=== PATIENT | female | born 1945 | race American Indian/Alaskan Native ===

== ENCOUNTER 2018-11-18 18:17 | Emergency (ER) | payer MEDICARE ==
--- NOTE | 2018-11-18 19:22 | Emergency Department Report ---
Blank Doc - Documentation Documentation: This is a 73-year-old female that presents with dizziness. Nephew in law stated that patient is here for mental health. Stated that she was discharged from half-way and has no place to go, as per nephew in law. Patient denies any mental issues. Patient is A/O x3. Denies any SI/HI. This initial assessment/diagnostic orders/clinical plan/treatment(s) is/are subject to change based on patient's health status, clinical progression and re- assessment by fellow clinical providers in the ED. Further treatment and workup at subsequent clinical providers discretion. Patient/guardians urged not to elope from the ED as their condition may be serious if not clinically assessed and managed. Initial orders include: 1- Patient sent to MAIN ED for further evaluation and treatment 2- labs 3- UA
[2018-11-18 20:34] LABS: Hematocrit 36.8 % (30.3-42.9); Hemoglobin 11.9 gm/dl (10.1-14.3); Mean Corpuscular HGB Conc 32 % (30-34); Mean Corpuscular Volume 93 fl (79-97); Red Blood Count 3.96 M/mm3 (3.65-5.03); Red Cell Distribution Width 18.3 % (13.2-15.2)
[2018-11-18 20:35] LABS: Platelet Count 240 K/mm3 (140-440)
[2018-11-18 21:02] LABS: Albumin 4.1 g/dL (3.9-5); Calcium 9.3 mg/dL (8.4-10.2)
[2018-11-18 21:53] LABS: Band Neutrophils # (Manual) 0.1 K/mm3; Basophils % (Manual) 0 % (0.0-1.8); Eosinophils % (Manual) 0 % (0.0-4.3); RBC Morphology Normal; Total Cells Counted 100
[2018-11-18 22:09] LABS: Bilirubin,Urine NEG (Negative); Blood,Urine NEG (Negative); Color,Urine Yellow (Yellow); Mucus,Urine FEW /HPF; Urobilinogen,Urine < 2.0 mg/dL (<2.0)
--- NOTE | 2018-11-19 01:16 | Emergency Department Report ---
HPI - General Chief Complaint: Dizziness Time Seen by Provider: 11/18/18 19:14 - HPI HPI: Room 8 The patient is a 73-year-old female presenting with a chief complaint of homelessness. Patient was reportedly brought in by a nephew in law after being kicked out of a personal usp. The patient says she has a history of vertigo for a long time and it usually affects her when she stands. Patient denies suicidal or homicidal ideation. Patient denies auditory or visual hallucinations. Patient denies chest pain shortness of breath or headache. P atient currently denies any complaints Location: [See above] Duration: [See above] Quality: [See above] Severity: [See above] Modifying factors: [see above] Context: [see above] Mode of transportation: [not driving] ED Past Medical Hx - Past Medical History Hx Hypertension: Yes Additional medical history: Vertigo - Surgical History Additional Surgical History: Toe repair - Family History Family history: no significant - Social History Smoking Status: Former Smoker Substance Use Type: None - Medications Home Medications: Home Medications Medication Instructions Recorded Confirmed Last Taken Type Ergocalciferol [Vitamin D2] 1 cap PO QWEEK 11/19/18 11/19/18 Unknown History Fluticasone [Flonase] 1 spray NS QDAY 11/19/18 11/19/18 Unknown History Gabapentin [Neurontin] 100 mg PO Q8HR 11/19/18 11/19/18 Unknown History HYDROcodone/APAP 7.5-325 [[place] 1 each PO Q6HR PRN 11/19/18 11/19/18 Unknown History 7.5/325] Quetiapine Fumarate [Seroquel] 50 mg PO DAILY 11/19/18 11/19/18 Unknown History Zinc Oxide/Menthol/Calamine 1 drop OS DAILY 11/19/18 11/19/18 Unknown History [Lantiseptic Multi-Purpose Oint] traMADol [Ultram] 50 mg PO Q6HR PRN 11/19/18 11/19/18 Unknown History ED Review of Systems ROS: Stated complaint: PSYCH EVAL Other details as noted in HPI Constitutional: no symptoms reported Eyes: denies: eye pain ENT: denies: throat pain Respiratory: no symptoms reported Cardiovascular: denies: chest pain Endocrine: no symptoms reported Gastrointestinal: denies: abdominal pain Genitourinary: denies: dysuria Musculoskeletal: denies: back pain Neurological: denies: headache Physical Exam - Physical Exam Vital Signs: Vital Signs 11/18/18 11/18/18 11/18/18 19:11 19:14 22:21 Temperature 98.0 F 98.0 F Pulse Rate 73 74 69 Respiratory 18 18 20 Rate Blood Pressure 169/87 169/87 Blood Pressure 168/88 [Left] O2 Sat by Pulse 97 96 97 Oximetry 11/18/18 11/19/18 23:00 00:00 Temperature Pulse Rate Respiratory 18 18 Rate Blood Pressure Blood Pressure 160/66 [Left] O2 Sat by Pulse 97 100 Oximetry Physical Exam: GENERAL: The patient is well-developed well-nourished female lying on stretcher not appear to be in acute distress. [] HEENT: Normocephalic. Atraumatic. Extraocular motions are intact. Patient has moist mucous membranes. NECK: Supple. Trachea midline CHEST/LUNGS: Clear to auscultation. There is no respiratory distress noted. HEART/CARDIOVASCULAR: Regular. There is no tachycardia. There is no gallop rub or murmur. ABDOMEN: Abdomen is soft, nontender. Patient has normal bowel sounds. There is no abdominal distention. SKIN: There is no rash. There is no edema. There is no diaphoresis. NEURO: The patient is awake, alert, and oriented. The patient is cooperative. The patient has no focal neurologic deficits. The patient has normal speech MUSCULOSKELETAL: There is no evidence of acute injury. ED Course Vital Signs 11/18/18 11/18/18 11/18/18 19:11 19:14 22:21 Temperature 98.0 F 98.0 F Pulse Rate 73 74 69 Respiratory 18 18 20 Rate Blood Pressure 169/87 169/87 Blood Pressure 168/88 [Left] O2 Sat by Pulse 97 96 97 Oximetry 11/18/18 11/19/18 23:00 00:00 Temperature Pulse Rate Respiratory 18 18 Rate Blood Pressure Blood Pressure 160/66 [Left] O2 Sat by Pulse 97 100 Oximetry ED Medical Decision Making - Lab Data Result diagrams: 11/18/18 19:36 11/18/18 19:36 Laboratory Tests 11/18/18 11/18/18 11/18/18 19:36 19:36 21:40 WBC 9.9 RBC 3.96 Hgb 11.9 Hct 36.8 MCV 93 MCH 30 MCHC 32 RDW 18.3 H Plt Count 240 Add Manual Diff Complete Total Counted 100 Seg Neuts % (Manual) 59.0 Band Neutrophils % 1.0 Lymphocytes % (Manual) 32.0 Reactive Lymphs % (Man) 0 Monocytes % (Manual) 8.0 H Eosinophils % (Manual) 0 Basophils % (Manual) 0 Metamyelocytes % 0 Myelocytes % 0 Promyelocytes % 0 Blast Cells % 0 Nucleated RBC % Not Reportable Seg Neutrophils # Man 5.8 Band Neutrophils # 0.1 Lymphocytes # (Manual) 3.2 Abs React Lymphs (Man) 0.0 Monocytes # (Manual) 0.8 Eosinophils # (Manual) 0.0 Basophils # (Manual) 0.0 Metamyelocytes # 0.0 Myelocytes # 0.0 Promyelocytes # 0.0 Blast Cells # 0.0 WBC Morphology Not Reportable Hypersegmented Neuts Not Reportable Hyposegmented Neuts Not Reportable Hypogranular Neuts Not Reportable Smudge Cells Not Reportable Toxic Granulation Not Reportable Toxic Vacuolation Not Reportable Dohle Bodies Not Reportable Pelger-Huet Anomaly Not Reportable Corbin Rods Not Reportable Platelet Estimate Appears normal Clumped Platelets Not Reportable Plt Clumps, EDTA Not Reportable Large Platelets Not Reportable Giant Platelets Not Reportable Platelet Satelliting Not Reportable Plt Morphology Comment Not Reportable RBC Morphology Normal Dimorphic RBCs Not Reportable Polychromasia Not Reportable Hypochromasia Not Reportable Poikilocytosis Not Reportable Anisocytosis Not Reportable Microcytosis Not Reportable Macrocytosis Not Reportable Spherocytes Not Reportable Pappenheimer Bodies Not Reportable Sickle Cells Not Reportable Target Cells Not Reportable Tear Drop Cells Not Reportable Ovalocytes Not Reportable Helmet Cells Not Reportable [place] Bodies Not Reportable [place] Rings Not Reportable [place] Cells Not Reportable Bite Cells Not Reportable Crenated Cell Not Reportable Elliptocytes Not Reportable Acanthocytes (Spur) Not Reportable Rouleaux Not Reportable Hemoglobin C Crystals Not Reportable Schistocytes Not Reportable Malaria parasites Not Reportable Demetrius Bodies Not Reportable Hem Pathologist Commnt No Sodium 144 Potassium 4.0 Chloride 104.1 Carbon Dioxide 27 Anion Gap 17 BUN 15 Creatinine 1.1 Estimated GFR 48 BUN/Creatinine Ratio 14 Glucose 87 Calcium 9.3 Total Bilirubin 0.40 AST 16 ALT 10 Alkaline Phosphatase 81 Total Protein 7.4 Albumin 4.1 Albumin/Globulin Ratio 1.2 Urine Color Yellow Urine Turbidity Clear Urine pH 5.0 Ur Specific [place] 1.029 Urine Protein 30 mg/dl Urine Glucose (UA) Neg Urine Ketones Neg Urine Blood Neg Urine Nitrite Neg Urine Bilirubin Neg Urine Urobilinogen < 2.0 Ur Leukocyte Esterase Tr Urine WBC (Auto) 2.0 Urine RBC (Auto) 1.0 U Epithel Cells (Auto) 1.0 Urine Mucus Few - Differential Diagnosis homelessness, dementia Critical care attestation.: If time is entered above; I have spent that time in minutes in the direct care of this critically ill patient, excluding procedure time. ED Disposition Clinical Impression: Homelessness Disposition: DC-01 TO HOME OR SELFCARE Is pt being admited?: No Does the pt Need Aspirin: No Condition: Stable Referrals: TRA KELLER MD [Primary Care Provider] - 3-5 Days Time of Disposition: 01:16 (awaiting social work eval)
[2018-11-19 19:36] VITALS: BP 128/80
== END 2018-11-19 19:37 | disposition home or self-care (01) ==
LOC: ED 18:17
DX: R42 Dizziness and giddiness (principal); Z59.0 Homelessness; I10 Essential (primary) hypertension; Z87.891 Personal history of nicotine dependence
CPT/HCPCS: 36415; 80053; 81001; 85007; 85025

== ENCOUNTER 2022-03-12 03:08 | Inpatient (IN) | payer MEDICARE ==
--- NOTE | 2022-03-12 04:38 | XRay Report ---
CHEST 1 VIEW 03/12/2022 4:23 AM INDICATION / CLINICAL INFORMATION: sob. COMPARISON: None available. FINDINGS: SUPPORT DEVICES: None. HEART / MEDIASTINUM: Mild cardiomegaly. LUNGS / PLEURA: Increased interstitial markings were more localized opacity at the perihilar regions bilaterally. No pneumothorax. ADDITIONAL FINDINGS: No significant additional findings. IMPRESSION: Vascular congestion with suspected superimposed pneumonia. Signer Name: Michael Currie MD Signed: 03/12/2022 4:33 AM Workstation Name: [id number]
[2022-03-12] MEDS ORDERED: AZITHROMYCIN/NS 500 MG/250 ML 500 MG/250 ML BAG IV ONE (04:53)
[2022-03-12] MEDS ORDERED: cefTRIAXone/NS 2 GM/100 ML 2 GM/100 ML BAG IV ONE (04:53)
[2022-03-12 06:11] LABS: Basophils % (Auto) 0.4 % (0.0-1.8); Eosinophils # (Auto) 0.3 K/mm3 (0.0-0.4); Eosinophils % (Auto) 2.2 % (0.0-4.3); Hematocrit 33.8 % (30.3-42.9); Hemoglobin 10.7 gm/dl (10.1-14.3); Lymphocytes # (Auto) 0.9 K/mm3 (1.2-5.4); Lymphocytes % (Auto) 7.5 % (13.4-35.0); Mean Corpuscular HGB Conc 32 % (30-34); Mean Corpuscular Volume 103 fl (79-97); Monocytes # (Auto) 0.6 K/mm3 (0.0-0.8); Platelet Count 251 K/mm3 (140-440); Red Blood Count 3.29 M/mm3 (3.65-5.03); Red Cell Distribution Width 13.9 % (13.2-15.2)
[2022-03-12 06:23] LABS: INR 1.02 (0.87-1.13)
[2022-03-12 06:31] LABS: Albumin 3.8 g/dL (3.9-5); Calcium 9.1 mg/dL (8.4-10.2)
--- NOTE | 2022-03-12 06:43 | Emergency Department Report ---
HPI - General Chief Complaint: Dyspnea/Respdistress Time Seen by Provider: 03/12/22 04:00 - HPI HPI: Room 24 The patient is a 77-year-old female present with a chief complaint of shortness of breath. The patient is a resident at an assisted living facility reportedly awakened this morning at 02: 00 complaint of shortness of breath with a cough. Patient was found to be hypoxic to 88% on room air. EMS was called and applied a nonrebreather in addition to administering albuterol neb 2.5 mg. The patient has history of dementia and when asked what made her come to the emergency department patient replies "I am not sure." ED Past Medical Hx - Past Medical History Previous Medical History?: Yes Hx Hypertension: Yes Hx Arthritis: Yes Hx Dementia: Yes Additional medical history: Vertigo. Chronic pain - Surgical History Past Surgical History?: Yes Additional Surgical History: Toe repair - Family History Family history: no significant - Social History Smoking Status: Former Smoker Substance Use Type: None - Medications Home Medications: Home Medications Medication Instructions Recorded Confirmed Last Taken Type Ergocalciferol [Vitamin D2] 1 cap PO QWEEK 11/19/18 11/19/18 Unknown History Fluticasone [Flonase] 1 spray NS QDAY 11/19/18 11/19/18 Unknown History Gabapentin [Neurontin] 100 mg PO Q8HR 11/19/18 11/19/18 Unknown History HYDROcodone/APAP 7.5-325 [[place] 1 each PO Q6HR PRN 11/19/18 11/19/18 Unknown History 7.5/325] Quetiapine Fumarate [Seroquel] 50 mg PO DAILY 11/19/18 11/19/18 Unknown History Zinc Oxide/Menthol/Calamine 1 drop OS DAILY 11/19/18 11/19/18 Unknown History [Lantiseptic Multi-Purpose Oint] traMADoL [Ultram] 50 mg PO Q6HR PRN 11/19/18 11/19/18 Unknown History ED Review of Systems ROS: Stated complaint: YUNI Other details as noted in HPI Comment: Unobtainable due to pts medical conditions Physical Exam - Physical Exam Vital Signs: Vital Signs 03/12/22 03/12/22 03/12/22 03:08 04:15 04:16 Temperature 97.9 F Pulse Rate 88 68 Respiratory 18 21 Rate Blood Pressure 150/90 Blood Pressure [Left] O2 Sat by Pulse 98 95 95 Oximetry 03/12/22 05:20 Temperature Pulse Rate 72 Respiratory 19 Rate Blood Pressure Blood Pressure 109/91 [Left] O2 Sat by Pulse 95 Oximetry Physical Exam: GENERAL: The patient is well-developed well-nourished female lying on stretcher not appearing to be in acute distress. [] HEENT: Normocephalic. Atraumatic. Extraocular motions are intact. Patient has moist mucous membranes. NECK: Supple. Trachea midline CHEST/LUNGS: Clear to auscultation. There is no respiratory distress noted. HEART/CARDIOVASCULAR: Regular. There is no tachycardia. There is no gallop rub or murmur. ABDOMEN: Abdomen is soft, nontender. Patient has normal bowel sounds. There is no abdominal distention. SKIN: There is no rash. There is no edema. There is no diaphoresis. NEURO: The patient is awake and alert. The patient is cooperative. The patient has no focal neurologic deficits. The patient has normal speech. GCS 15 MUSCULOSKELETAL: There is no evidence of acute injury. ED Course Vital Signs 03/12/22 03/12/22 03/12/22 03:08 04:15 04:16 Temperature 97.9 F Pulse Rate 88 68 Respiratory 18 21 Rate Blood Pressure 150/90 Blood Pressure [Left] O2 Sat by Pulse 98 95 95 Oximetry 03/12/22 05:20 Temperature Pulse Rate 72 Respiratory 19 Rate Blood Pressure Blood Pressure 109/91 [Left] O2 Sat by Pulse 95 Oximetry ED Medical Decision Making - Lab Data Result diagrams: 03/12/22 05:31 03/12/22 05:31 Laboratory Tests 03/12/22 03/12/22 03/12/22 05:31 05:31 05:31 WBC 12.2 H RBC 3.29 L Hgb 10.7 Hct 33.8 MCV 103 H MCH 33 H MCHC 32 RDW 13.9 Plt Count 251 Lymph % (Auto) 7.5 L [place] % (Auto) 5.0 Eos % (Auto) 2.2 Baso % (Auto) 0.4 Lymph # (Auto) 0.9 L [place] # (Auto) 0.6 Eos # (Auto) 0.3 Baso # (Auto) 0.0 Seg Neutrophils % 84.9 H Seg Neutrophils # 10.4 H PT 14.5 INR 1.02 Sodium 148 H Potassium 4.1 Chloride 109.2 H Carbon Dioxide 27 Anion Gap 16 BUN 24 H Creatinine 1.1 Estimated GFR 58 BUN/Creatinine Ratio 22 Glucose 91 Calcium 9.1 Total Bilirubin 0.30 AST 27 ALT 26 Alkaline Phosphatase 68 Troponin T 0.015 NT-Pro-B Natriuret Pep 1824 H Total Protein 6.6 Albumin 3.8 L Albumin/Globulin Ratio 1.4 - EKG Data -: EKG Interpreted by Me EKG shows normal: sinus rhythm Rate: normal (72 bpm) - EKG Data When compared to previous EKG there are: previous EKG unavailable Interpretation: other (No ischemic changes seen) - Radiology Data Radiology results: report reviewed (Chest x-ray), image reviewed (Chest x-ray) interpreted by me: Chest [id number] patchy infiltrates. No pneumothorax [facility] [address] [place] [address] XRay Report Signed Patient: MIGUEL TRAVIS MR#: [id number] : 1945 Acct:[id number] Age/Sex: 77 / F ADM Date: 03/12/22 Loc: ED Attending Dr: Ordering Physician: JOHNATHON COLLINS MD Date of Service: 03/12/22 Procedure(s): XR chest 1V ap Accession Number(s): [id number] cc: JOHNATHON COLLINS MD Fluoro Time In Minutes: CHEST 1 VIEW 03/12/2022 4:23 AM INDICATION / CLINICAL INFORMATION: sob. COMPARISON: None available. FINDINGS: SUPPORT DEVICES: None. HEART / MEDIASTINUM: Mild cardiomegaly. LUNGS / PLEURA: Increased interstitial markings were more localized opacity at the perihilar regions bilaterally. No pneumothorax. ADDITIONAL FINDINGS: No significant additional findings. IMPRESSION: Vascular congestion with suspected superimposed pneumonia. Signer Name: Michael Currie MD Signed: 03/12/2022 4:33 AM Workstation Name: [id number] Transcribed By: ES Dictated By: Michael Currie MD Electronically Authenticated By: Michael Currie MD Signed Date/Time: 03/12/22432 DD/ 1 TD/TT: - Differential Diagnosis Pneumonia Critical care attestation.: If time is entered above; I have spent that time in minutes in the direct care of this critically ill patient, excluding procedure time. ED Disposition Clinical Impression: Pneumonia, Hypoxia Disposition: ADMITTED INPATIENT Is pt being admited?: Yes Does the pt Need Aspirin: No Condition: Fair Instructions: Bacterial Pneumonia (ED) Referrals: YESSICA ANN MD [Primary Care Provider] - 3-5 Days Time of Disposition: 07:07 (Care transferred to hospitalist Dr. Figueroa (discussed with Dr. Myers))
[2022-03-12] MEDS ORDERED: FUROSEMIDE 20 MG/2 ML INJ IV ONE ×2 (07:15→12:00)
[2022-03-12] MEDS ORDERED: oxyCODONE /ACETAMINOPHEN 5-325MG TAB PO PRN (08:14)
[2022-03-12] MEDS ORDERED: ACETAMINOPHEN 325 MG TAB PO PRN (08:14)
[2022-03-12] MEDS ORDERED: MORPHINE 4 MG/1 ML INJ IV PRN (08:14)
[2022-03-12] MEDS ORDERED: ONDANSETRON 4 MG/2 ML INJ IV PRN (08:14)
[2022-03-12] MEDS ORDERED: SODIUM CHLORIDE 0.9% 1000 ML 1,000 ML IV SCH (08:15)
[2022-03-12] MEDS: ENOXAPARIN 30 MG/0.3 ML INJ SUB-Q SCH (11:36)
--- NOTE | 2022-03-12 11:54 | History and Physical Report ---
History of Present Illness Date of examination: 03/12/22 Date of admission: 03/12/22 08:14 Chief complaint: shortness of breath History of present illness: Patient is a 77-year-old female history of dementia who presented from personal skilled nursing with shortness of breath. She was found to be hypoxic to 88% and placed on supplemental oxygen. At time of interview patient is alert and oriented to self. She is unable to provide further history due to mental status . Labs are notable for NT proBNP 1824. Chest x-ray suggestive of vascular congestion with superimposed pneumonia. Patient received 1 dose of azithromycin and Rocephin in ED. She was admitted for presumed CHF exacerbation with superimposed pneumonia. Past History Past Medical History: other (dementia) Medications and Allergies Allergies Allergy/AdvReac Type Severity Reaction Status Date / Time No Known Allergies Allergy Verified 03/12/22 08:18 Home Medications Medication Instructions Recorded Confirmed Last Taken Type Ergocalciferol [Vitamin D2] 1 cap PO QWEEK 11/19/18 03/13/22 Unknown History Fluticasone [Flonase] 1 spray NS QDAY 11/19/18 03/13/22 Unknown History HYDROcodone/APAP 7.5-325 [[place] 1 each PO Q6HR PRN 11/19/18 03/13/22 Unknown History 7.5-325 mg TAB] Zinc Oxide/Menthol/Calamine 1 drop OS DAILY 11/19/18 03/13/22 Unknown History [Lantiseptic Multi-Purpose Oint] traMADoL [Ultram 50 MG tab] 50 mg PO Q6HR PRN 11/19/18 03/13/22 Unknown History Gabapentin 100 mg PO Q8HR #90 cap 03/16/22 Unknown Rx Pantoprazole [Protonix TAB] 40 mg PO QDAC #20 tablet 03/16/22 Unknown Rx Sertraline [Zoloft] 25 mg PO QDAY #30 tablet 03/16/22 Unknown Rx Temazepam [Restoril] 15 mg PO QHS #10 capsule 03/16/22 Unknown Rx Valproic Acid [Depakene] 250 mg PO BID #60 capsule 03/16/22 Unknown Rx oxyCODONE /ACETAMINOPHEN [Percocet 1 tab PO Q6H PRN #14 tablet 03/16/22 Unknown Rx 5/325 mg] Active Meds: Active Medications Acetaminophen (Acetaminophen 325 Mg Tab) 650 mg PO Q4H PRN PRN Reason: Pain MILD(1-3)/Fever >100.5/GALLOWAY Enoxaparin Sodium (Enoxaparin 30 Mg/0.3 Ml Inj) 30 mg SUB-Q QDAY [facility]; Protocol Last Admin: 03/12/22 11:36 Dose: 30 mg Azithromycin (Zithromax/Ns) 500 mg in 250 mls @ 250 mls/hr IV Q24H RAMA Ceftriaxone Sodium (Rocephin/Ns 2 Gm/100 Ml) 2 gm in 100 mls @ 200 mls/hr IV Q24H [facility]; Protocol Morphine Sulfate (Morphine 4 Mg/1 Ml Inj) 4 mg IV Q4H PRN PRN Reason: Pain , Severe (7-10) Ondansetron HCl (Ondansetron 4 Mg/2 Ml Inj) 4 mg IV Q8H PRN PRN Reason: Nausea And Vomiting Oxycodone/Acetaminophen (Oxycodone /Acetaminophen 5-325mg Tab) 1 tab PO Q6H PRN PRN Reason: Pain, Moderate (4-6) Sodium Chloride (Sodium Chloride 0.9% 10 Ml Flush Syringe) 10 ml IV BID [facility] Last Admin: 03/12/22 11:36 Dose: 10 ml Sodium Chloride (Sodium Chloride 0.9% 10 Ml Flush Syringe) 10 ml IV PRN PRN PRN Reason: LINE FLUSH Review of Systems ROS unobtainable: due to mental status Exam - Physical Exam Narrative exam: GENERAL: Well-developed well-nourished. In no acute distress. HEENT: Simple facemask @ 5LPM NECK: Supple. CHEST/LUNGS: CTAB on supplemental O2. HEART/CARDIOVASCULAR: RRR. No murmur, rubs or gallops appreciated. ABDOMEN: +BS. NT/ND. SKIN: No rashes noted. NEURO: Patient does not follow commands. Has no focal deficits grossly. MUSCULOSKELETAL: No joint effusion EXTREMITIES: No cyanosis, clubbing or edema. PSYCH: Alert to person. - Constitutional Vitals: Temp Pulse Resp BP Pulse Ox 97.9 F 66 15 127/70 99 03/12/22 03:08 03/12/22 10:45 03/12/22 10:45 03/12/22 10:45 03/12/22 10:45 HEART Score - HEART Score Troponin: Troponin T 0.015 ng/mL (0.00-0.029) 03/12/22 05:31 Results - Labs CBC & Chem 7: 03/14/22 04:44 03/14/22 04:44 Labs: Laboratory Last Values WBC 12.2 K/mm3 (4.5-11.0) H 03/12/22 05:31 RBC 3.29 M/mm3 (3.65-5.03) L 03/12/22 05:31 Hgb 10.7 gm/dl (10.1-14.3) 03/12/22 05:31 Hct 33.8 % (30.3-42.9) 03/12/22 05:31 MCV 103 fl (79-97) H 03/12/22 05:31 MCH 33 pg (28-32) H 03/12/22 05:31 MCHC 32 % (30-34) 03/12/22 05:31 RDW 13.9 % (13.2-15.2) 03/12/22 05:31 Plt Count 251 K/mm3 (140-440) 03/12/22 05:31 Lymph % (Auto) 7.5 % (13.4-35.0) L 03/12/22 05:31 [place] % (Auto) 5.0 % (0.0-7.3) 03/12/22 05:31 Eos % (Auto) 2.2 % (0.0-4.3) 03/12/22 05:31 Baso % (Auto) 0.4 % (0.0-1.8) 03/12/22 05:31 Lymph # (Auto) 0.9 K/mm3 (1.2-5.4) L 03/12/22 05:31 [place] # (Auto) 0.6 K/mm3 (0.0-0.8) 03/12/22 05:31 Eos # (Auto) 0.3 K/mm3 (0.0-0.4) 03/12/22 05:31 Baso # (Auto) 0.0 K/mm3 (0.0-0.1) 03/12/22 05:31 Seg Neutrophils % 84.9 % (40.0-70.0) H 03/12/22 05:31 Seg Neutrophils # 10.4 K/mm3 (1.8-7.7) H 03/12/22 05:31 PT 14.5 Sec. (12.2-14.9) 03/12/22 05:31 INR 1.02 (0.87-1.13) 03/12/22 05:31 Sodium 148 mmol/L (137-145) H 03/12/22 05:31 Potassium 4.1 mmol/L (3.6-5.0) 03/12/22 05:31 Chloride 109.2 mmol/L (98-107) H 03/12/22 05:31 Carbon Dioxide 27 mmol/L (22-30) 03/12/22 05:31 Anion Gap 16 mmol/L 03/12/22 05:31 BUN 24 mg/dL (7-17) H 03/12/22 05:31 Creatinine 1.1 mg/dL (0.6-1.2) 03/12/22 05:31 Estimated GFR 58 ml/min 03/12/22 05:31 BUN/Creatinine Ratio 22 % 03/12/22 05:31 Glucose 91 mg/dL (65-100) 03/12/22 05:31 Calcium 9.1 mg/dL (8.4-10.2) 03/12/22 05:31 Total Bilirubin 0.30 mg/dL (0.1-1.2) 03/12/22 05:31 AST 27 units/L (5-40) 03/12/22 05:31 ALT 26 units/L (7-56) 03/12/22 05:31 Alkaline Phosphatase 68 units/L (35-129) 03/12/22 05:31 Troponin T 0.015 ng/mL (0.00-0.029) 03/12/22 05:31 NT-Pro-B Natriuret Pep 1824 pg/mL (0-900) H 03/12/22 05:31 Total Protein 6.6 g/dL (6.3-8.2) 03/12/22 05:31 Albumin 3.8 g/dL (3.9-5) L 03/12/22 05:31 Albumin/Globulin Ratio 1.4 % 03/12/22 05:31 Assessment and Plan Assessment and plan: #Acute hypoxic respiratory failure -no baseline O2 requirement -currently requiring 5L supplemental O2; will wean as tolerated -likely secondary to PNA vs CHF exacerbation #Bilateral pneumonia -CXR reviewed suggestive of vascular congestion with superimposed PNA -COVID PCR ordered -s/p azithromycin & rocephin in ED, will continue #Probable CHF exacerbation -NTproBNP 1824 -no prior hx of CHF; improvement in symptoms s/p 1 dose of IV lasix in ED -echocardiogram ordered -will consult Cardiology if EF reduced or patient symptoms worsen #History of seizure -Continue valproic acid 25 mg twice daily #Dementia -Continue sertraline, lorazepam and temazepam #Moderate protein calorie malnutrition -albumin 3.8 -nutrition consult Advance Directives: No VTE prophylaxis?: Chemical Plan of care discussed with patient/family: No
--- NOTE | 2022-03-12 19:56 | Electrocardiograph Report ---
[facility] Test Date: 2022-03-12 Test Time: 06:51:57 Pat Name: MIGUEL TRAVIS Department: Room: A351 Gender: F [place]: ALEXI : 1945 Requested By: JOHNATHON COLLINS Order Number: [id number] Reading MD: Oumar Gerber Measurements Intervals [place] Rate: 72 P: 67 NC: 147 QRS: -13 QRSD: 89 T: 68 QT: 397 QTc: 433 Interpretive Statements Sinus rhythm Anterior infarct, old No previous ECG available for comparison Electronically Signed On 03-12-2022 19:56:25 EDT by Oumar Gerber
[2022-03-12] MEDS: TEMAZEPAM 15 MG CAP PO SCH (22:41)
[2022-03-12] MEDS: GABAPENTIN 100 MG CAP PO SCH (22:41)
[2022-03-12] MEDS: LORazepam 1 MG TAB PO SCH (22:41)
[2022-03-12] MEDS ORDERED: DEXTROSE 50% IN WATER (25GM) 50 ML SYRINGE IV ONE (23:05)
[2022-03-12] MEDS: VALPROIC ACID 250 MG CAP PO SCH (23:10)
[2022-03-13 05:50] LABS: Basophils % (Auto) 0.4 % (0.0-1.8); Eosinophils # (Auto) 0.2 K/mm3 (0.0-0.4); Eosinophils % (Auto) 3.2 % (0.0-4.3); Hematocrit 32.1 % (30.3-42.9); Hemoglobin 10.6 gm/dl (10.1-14.3); Lymphocytes # (Auto) 1.2 K/mm3 (1.2-5.4); Lymphocytes % (Auto) 16.1 % (13.4-35.0); Mean Corpuscular HGB Conc 33 % (30-34); Mean Corpuscular Volume 100 fl (79-97); Monocytes # (Auto) 0.5 K/mm3 (0.0-0.8); Monocytes % (Auto) 6.3 % (0.0-7.3); Platelet Count 269 K/mm3 (140-440); Red Cell Distribution Width 14.2 % (13.2-15.2)
[2022-03-13 06:00] LABS: Blood Urea Nitrogen 20 mg/dL (7-17); Calcium 9.4 mg/dL (8.4-10.2); Hemolysis Index 3
[2022-03-13 06:04] LABS: BUN/Creatinine Ratio 29
--- NOTE | 2022-03-13 08:40 | Progress Note ---
History Interval history: Patient is a 77-year-old female history of dementia who presented from personal detention with shortness of breath. She was found to be hypoxic to 88% and placed on supplemental oxygen. At time of interview, patient was alert and oriented to self. She is unable to provide further history due to mental status. Labs are notable for NT proBNP 1824. Chest x-ray suggestive of vascular congestion with superimposed pneumonia. Patient received 1 dose of azithromycin and Rocephin in ED. She was admitted for presumed CHF exacerbation with superimposed pneumonia. Acute hypoxic respiratory failure Mild CHF exacerbation Bilateral pneumonia History of seizure disorder Dementia Moderate protein calorie malnutrition 03/13/2022. Continue supplemental oxygen to maintain sats greater than 92%. Follow-up echocardiogram to assess heart failure etiology of systolic versus diastolic dysfunction. Continue IV antibiotics and follow-up procalcitonin levels. Check COVID PCR. Continue Depakote for seizure disorder. Seizure precautions. Hospitalist Physical - Constitutional Vitals: Temp Pulse Resp BP Pulse Ox 96.0 F L 51 L 18 172/85 97 03/13/22 03:24 03/13/22 03:24 03/13/22 03:24 03/13/22 03:24 03/13/22 03:24 HEART Score - HEART Score Troponin: Troponin T 0.015 ng/mL (0.00-0.029) 03/12/22 05:31 Results - Labs CBC & Chem 7: 03/13/22 05:09 03/13/22 05:09 Labs: Laboratory Last Values WBC 7.5 K/mm3 (4.5-11.0) 03/13/22 05:09 RBC 3.20 M/mm3 (3.65-5.03) L 03/13/22 05:09 Hgb 10.6 gm/dl (10.1-14.3) 03/13/22 05:09 Hct 32.1 % (30.3-42.9) 03/13/22 05:09 MCV 100 fl (79-97) H 03/13/22 05:09 MCH 33 pg (28-32) H 03/13/22 05:09 MCHC 33 % (30-34) 03/13/22 05:09 RDW 14.2 % (13.2-15.2) 03/13/22 05:09 Plt Count 269 K/mm3 (140-440) 03/13/22 05:09 Lymph % (Auto) 16.1 % (13.4-35.0) 03/13/22 05:09 [place] % (Auto) 6.3 % (0.0-7.3) 03/13/22 05:09 Eos % (Auto) 3.2 % (0.0-4.3) 03/13/22 05:09 Baso % (Auto) 0.4 % (0.0-1.8) 03/13/22 05:09 Lymph # (Auto) 1.2 K/mm3 (1.2-5.4) 03/13/22 05:09 [place] # (Auto) 0.5 K/mm3 (0.0-0.8) 03/13/22 05:09 Eos # (Auto) 0.2 K/mm3 (0.0-0.4) 03/13/22 05:09 Baso # (Auto) 0.0 K/mm3 (0.0-0.1) 03/13/22 05:09 Seg Neutrophils % 74.0 % (40.0-70.0) H 03/13/22 05:09 Seg Neutrophils # 5.6 K/mm3 (1.8-7.7) 03/13/22 05:09 PT 14.5 Sec. (12.2-14.9) 03/12/22 05:31 INR 1.02 (0.87-1.13) 03/12/22 05:31 Sodium 147 mmol/L (137-145) H 03/13/22 05:09 Potassium 3.5 mmol/L (3.6-5.0) L 03/13/22 05:09 Chloride 107.2 mmol/L (98-107) H 03/13/22 05:09 Carbon Dioxide 29 mmol/L (22-30) 03/13/22 05:09 Anion Gap 14 mmol/L 03/13/22 05:09 BUN 20 mg/dL (7-17) H 03/13/22 05:09 Creatinine 0.7 mg/dL (0.6-1.2) 03/13/22 05:09 Estimated GFR > 60 ml/min 03/13/22 05:09 BUN/Creatinine Ratio 29 % 03/13/22 05:09 Glucose 74 mg/dL (65-100) 03/13/22 05:09 POC Glucose 87 mg/dL (70-105) 03/13/22 03:39 Calcium 9.4 mg/dL (8.4-10.2) 03/13/22 05:09 Total Bilirubin 0.30 mg/dL (0.1-1.2) 03/12/22 05:31 AST 27 units/L (5-40) 03/12/22 05:31 ALT 26 units/L (7-56) 03/12/22 05:31 Alkaline Phosphatase 68 units/L (35-129) 03/12/22 05:31 Troponin T 0.015 ng/mL (0.00-0.029) 03/12/22 05:31 NT-Pro-B Natriuret Pep 1824 pg/mL (0-900) H 03/12/22 05:31 Total Protein 6.6 g/dL (6.3-8.2) 03/12/22 05:31 Albumin 3.8 g/dL (3.9-5) L 03/12/22 05:31 Albumin/Globulin Ratio 1.4 % 03/12/22 05:31 Coronavirus (PCR) Negative (Negative) 03/12/22 14:20 Microbiology: Microbiology 03/12/22 05:57 Peripheral/Venous Blood Culture - Preliminary Culture in Progress 03/12/22 05:31 Peripheral/Venous Blood Culture - Preliminary Culture in Progress [place]/IV: Voiding Method External Female Catheter Active Medications - Current Medications Current Medications: Generic Name Dose Route Start Last Admin Trade Name Freq PRN Reason Stop Dose Admin Acetaminophen 650 mg 03/12/22 08:14 Acetaminophen 325 Mg Tab PO Q4H PRN Pain MILD(1-3)/Fever >100.5/GALLOWAY Azithromycin 500 mg 03/13/22 10:00 Azithromycin 250 Mg Tab PO 03/16/22 10:59 QDAY RAMA Enoxaparin Sodium 30 mg 03/12/22 10:00 03/12/22 11:36 Enoxaparin 30 Mg/0.3 Ml Inj SUB-Q 30 mg QDAY RAMA Administration Protocol Gabapentin 100 mg 03/12/22 14:00 03/12/22 22:41 Gabapentin 100 Mg Cap PO 100 mg Q8HR RAMA Administration Ceftriaxone Sodium 2 gm in 100 mls @ 200 mls/hr 03/13/22 09:00 Rocephin/Ns 2 Gm/100 Ml IV 03/16/22 10:59 Q24H RAMA Protocol Lorazepam 1 mg 03/12/22 22:00 03/12/22 22:41 Lorazepam 1 Mg Tab PO 1 mg QHS RAMA Administration Morphine Sulfate 4 mg 03/12/22 08:14 Morphine 4 Mg/1 Ml Inj IV Q4H PRN Pain , Severe (7-10) Ondansetron HCl 4 mg 03/12/22 08:14 Ondansetron 4 Mg/2 Ml Inj IV Q8H PRN Nausea And Vomiting Oxycodone/Acetaminophen 1 tab 03/12/22 08:14 Oxycodone /Acetaminophen 5-325mg Tab PO Q6H PRN Pain, Moderate (4-6) Pantoprazole Sodium 40 mg 03/13/22 07:30 Pantoprazole 40 Mg Tab PO QDAC RAMA Sertraline HCl 25 mg 03/12/22 12:00 Sertraline 25 Mg Tab PO QDAY RAMA Sodium Chloride 10 ml 03/12/22 10:00 03/12/22 22:41 Sodium Chloride 0.9% 10 Ml Flush Syringe IV 10 ml BID RAMA Administration Sodium Chloride 10 ml 03/12/22 08:14 Sodium Chloride 0.9% 10 Ml Flush Syringe IV PRN PRN LINE FLUSH Temazepam 15 mg 03/12/22 22:00 03/12/22 22:41 Temazepam 15 Mg Cap PO 15 mg QHS RAMA Administration Valproic Acid 250 mg 03/12/22 22:00 03/12/22 23:10 Valproic Acid 250 Mg Cap PO 250 mg BID RAMA Administration
[2022-03-13] MEDS ORDERED: AZITHROMYCIN/NS 500 MG/250 ML 500 MG/250 ML BAG IV SCH (09:00)
[2022-03-13] MEDS: AZITHROMYCIN 250 MG TAB PO SCH (09:13)
[2022-03-13] MEDS: cefTRIAXone/NS 2 GM/100 ML 2 GM/100 ML BAG IV SCH (09:13)
[2022-03-13] MEDS: ENOXAPARIN 30 MG/0.3 ML INJ SUB-Q SCH (09:13)
[2022-03-13] MEDS: PANTOPRAZOLE 40 MG TAB PO SCH (09:13)
[2022-03-13] MEDS: SERTRALINE 25 MG TAB PO SCH (09:13)
[2022-03-13] MEDS: VALPROIC ACID 250 MG CAP PO SCH ×2 (11:23→23:04)
[2022-03-13] MEDS: GABAPENTIN 100 MG CAP PO SCH ×3 (16:06→23:08)
[2022-03-13] MEDS: TEMAZEPAM 15 MG CAP PO SCH (23:04)
[2022-03-13] MEDS: LORazepam 1 MG TAB PO SCH (23:05)
[2022-03-14 05:04] LABS: Hematocrit 34.7 % (30.3-42.9); Hemoglobin 11.5 gm/dl (10.1-14.3); Mean Corpuscular HGB Conc 33 % (30-34); Mean Corpuscular Volume 100 fl (79-97); Platelet Count 279 K/mm3 (140-440); Red Blood Count 3.48 M/mm3 (3.65-5.03); Red Cell Distribution Width 14.1 % (13.2-15.2)
[2022-03-14 05:17] LABS: Blood Urea Nitrogen 24 mg/dL (7-17); Calcium 9.8 mg/dL (8.4-10.2); Hemolysis Index 1
[2022-03-14 05:29] LABS: BUN/Creatinine Ratio 34
[2022-03-14 07:10] LABS: Basophils % (Manual) 0 % (0.0-1.8); Monocytes % (Manual) 0 % (0.0-7.3); Platelet Estimate Consistent w Auto; RBC Morphology Normal; Total Cells Counted 100
--- NOTE | 2022-03-14 08:22 | Progress Note ---
Assessment and Plan Assessment and plan: 77-year-old female patient with significant past medical history of dementia was admitted through [facility] with shortness of breath. She was found to be hypoxic to 88% and placed on supplemental oxygen. At time of interview, patient was alert and oriented to self. She is unable to provide further history due to mental status. Labs are notable for NT proBNP 1824. Chest x-ray suggestive of vascular congestion with superimposed pneumonia. Patient received 1 dose of azithromycin and Rocephin in ED. She was admitted for presumed CHF exacerbation with superimposed pneumonia. --Acute hypoxic respiratory failure; Oxygen titrate O2 sats to more than 90% COVID-19 test is negative, home O2 evaluation prior to discharge --Mild diastolic CHF exacerbation; Antifailure medications Left ventricle ejection fraction 65% and mild concentric LVH on echocardiogram --Bilateral pneumonia; Continue empiric antibiotics, follow cultures Home O2 evaluation prior to discharge --History of seizure disorder; Seizure precautions, continue antiepileptic medications Do not drive until cleared by neurology or primary care physician --Dementia; Supportive care --Moderate protein calorie malnutrition; Nutrition supplements and supportive care 03/13/2022. Continue supplemental oxygen to maintain sats greater than 92%. Follow-up echocardiogram to assess heart failure etiology of systolic versus diastolic dysfunction. Continue IV antibiotics and follow-up procalcitonin levels. Check COVID PCR. Continue Depakote for seizure disorder. Seizure pre cautions. 03/14; COVID-19 is negative, DC isolation, continue to treat bilateral pneumonia with Rocephin and Zithromax Monitor the patient and adjust management as needed Possible discharge in 1 to 2 days if stable History Interval history: I have seen and examined the patient at the bedside Patient's chart and medications reviewed Patient's COVID test is negative Complains of mild shortness of breath and generalized weakness Vital signs reviewed Hospitalist Physical - Constitutional Vitals: Temp Pulse Resp BP Pulse Ox 98.1 F 56 L 18 200/108 89 03/13/22 22:57 03/14/22 08:19 03/13/22 23:00 03/14/22 08:13 03/14/22 08:13 General appearance: Present: no acute distress, well-nourished - EENT Eyes: Present: PERRL, EOM intact - Neck Neck: Present: supple, normal ROM - Respiratory Respiratory effort: normal Respiratory: bilateral: diminished, rhonchi, negative: rales, wheezing - Cardiovascular Rhythm: regular Heart Sounds: Present: S1 & S2 - Extremities Extremities: no ischemia, No edema - Abdominal General gastrointestinal: soft, non-tender, non-distended, normal bowel sounds - Integumentary Integumentary: Present: clear, warm - Psychiatric Psychiatric: appropriate mood/affect, cooperative - Neurologic Neurologic: moves all extremities HEART Score - HEART Score Troponin: Troponin T 0.015 ng/mL (0.00-0.029) 03/12/22 05:31 Results - Labs CBC & Chem 7: 03/14/22 04:44 03/14/22 04:44 Labs: Laboratory Last Values WBC 6.6 K/mm3 (4.5-11.0) 03/14/22 04:44 RBC 3.48 M/mm3 (3.65-5.03) L 03/14/22 04:44 Hgb 11.5 gm/dl (10.1-14.3) 03/14/22 04:44 Hct 34.7 % (30.3-42.9) 03/14/22 04:44 MCV 100 fl (79-97) H 03/14/22 04:44 MCH 33 pg (28-32) H 03/14/22 04:44 MCHC 33 % (30-34) 03/14/22 04:44 RDW 14.1 % (13.2-15.2) 03/14/22 04:44 Plt Count 279 K/mm3 (140-440) 03/14/22 04:44 Lymph % (Auto) 16.1 % (13.4-35.0) 03/13/22 05:09 [place] % (Auto) 6.3 % (0.0-7.3) 03/13/22 05:09 Eos % (Auto) 3.2 % (0.0-4.3) 03/13/22 05:09 Baso % (Auto) 0.4 % (0.0-1.8) 03/13/22 05:09 Lymph # (Auto) 1.2 K/mm3 (1.2-5.4) 03/13/22 05:09 [place] # (Auto) 0.5 K/mm3 (0.0-0.8) 03/13/22 05:09 Eos # (Auto) 0.2 K/mm3 (0.0-0.4) 03/13/22 05:09 Baso # (Auto) 0.0 K/mm3 (0.0-0.1) 03/13/22 05:09 Add Manual Diff Complete 03/14/22 04:44 Total Counted 100 03/14/22 04:44 Seg Neutrophils % 74.0 % (40.0-70.0) H 03/13/22 05:09 Seg Neuts % (Manual) 80.0 % (40.0-70.0) H 03/14/22 04:44 Band Neutrophils % 0 % 03/14/22 04:44 Lymphocytes % (Manual) 13.0 % (13.4-35.0) L 03/14/22 04:44 Reactive Lymphs % (Man) 0 % 03/14/22 04:44 Monocytes % (Manual) 0 % (0.0-7.3) 03/14/22 04:44 Eosinophils % (Manual) 7.0 % (0.0-4.3) H 03/14/22 04:44 Basophils % (Manual) 0 % (0.0-1.8) 03/14/22 04:44 Metamyelocytes % 0 % 03/14/22 04:44 Myelocytes % 0 % 03/14/22 04:44 Promyelocytes % 0 % 03/14/22 04:44 Blast Cells % 0 % 03/14/22 04:44 Nucleated RBC % Not Reportable 03/14/22 04:44 Seg Neutrophils # 5.6 K/mm3 (1.8-7.7) 03/13/22 05:09 Seg Neutrophils # Man 5.3 K/mm3 (1.8-7.7) 03/14/22 04:44 Band Neutrophils # 0.0 K/mm3 03/14/22 04:44 Lymphocytes # (Manual) 0.9 K/mm3 (1.2-5.4) L 03/14/22 04:44 Abs React Lymphs (Man) 0.0 K/mm3 03/14/22 04:44 Monocytes # (Manual) 0.0 K/mm3 (0.0-0.8) 03/14/22 04:44 Eosinophils # (Manual) 0.5 K/mm3 (0.0-0.4) H 03/14/22 04:44 Basophils # (Manual) 0.0 K/mm3 (0.0-0.1) 03/14/22 04:44 Metamyelocytes # 0.0 K/mm3 03/14/22 04:44 Myelocytes # 0.0 K/mm3 03/14/22 04:44 Promyelocytes # 0.0 K/mm3 03/14/22 04:44 Blast Cells # 0.0 K/mm3 03/14/22 04:44 WBC Morphology Not Reportable 03/14/22 04:44 Hypersegmented Neuts Not Reportable 03/14/22 04:44 Hyposegmented Neuts Not Reportable 03/14/22 04:44 Hypogranular Neuts Not Reportable 03/14/22 04:44 Smudge Cells Not Reportable 03/14/22 04:44 Toxic Granulation Not Reportable 03/14/22 04:44 Toxic Vacuolation Not Reportable 03/14/22 04:44 Dohle Bodies Not Reportable 03/14/22 04:44 Pelger-Huet Anomaly Not Reportable 03/14/22 04:44 Corbin Rods Not Reportable 03/14/22 04:44 Platelet Estimate Consistent w auto 03/14/22 04:44 Clumped Platelets Not Reportable 03/14/22 04:44 Plt Clumps, EDTA Not Reportable 03/14/22 04:44 Large Platelets Not Reportable 03/14/22 04:44 Giant Platelets Not Reportable 03/14/22 04:44 Platelet Satelliting Not Reportable 03/14/22 04:44 Plt Morphology Comment Not Reportable 03/14/22 04:44 RBC Morphology Normal 03/14/22 04:44 Dimorphic RBCs Not Reportable 03/14/22 04:44 Polychromasia Not Reportable 03/14/22 04:44 Hypochromasia Not Reportable 03/14/22 04:44 Poikilocytosis Not Reportable 03/14/22 04:44 Anisocytosis Not Reportable 03/14/22 04:44 Microcytosis Not Reportable 03/14/22 04:44 Macrocytosis Not Reportable 03/14/22 04:44 Spherocytes Not Reportable 03/14/22 04:44 Pappenheimer Bodies Not Reportable 03/14/22 04:44 Sickle Cells Not Reportable 03/14/22 04:44 Target Cells Not Reportable 03/14/22 04:44 Tear Drop Cells Not Reportable 03/14/22 04:44 Ovalocytes Not Reportable 03/14/22 04:44 Helmet Cells Not Reportable 03/14/22 04:44 [place] Bodies Not Reportable 03/14/22 04:44 [place] Rings Not Reportable 03/14/22 04:44 [place] Cells Not Reportable 03/14/22 04:44 Bite Cells Not Reportable 03/14/22 04:44 Crenated Cell Not Reportable 03/14/22 04:44 Elliptocytes Not Reportable 03/14/22 04:44 Acanthocytes (Spur) Not Reportable 03/14/22 04:44 Rouleaux Not Reportable 03/14/22 04:44 Hemoglobin C Crystals Not Reportable 03/14/22 04:44 Schistocytes Not Reportable 03/14/22 04:44 Malaria parasites Not Reportable 03/14/22 04:44 Demetrius Bodies Not Reportable 03/14/22 04:44 Hem Pathologist Commnt No 03/14/22 04:44 PT 14.5 Sec. (12.2-14.9) 03/12/22 05:31 INR 1.02 (0.87-1.13) 03/12/22 05:31 Sodium 144 mmol/L (137-145) 03/14/22 04:44 Potassium 4.2 mmol/L (3.6-5.0) 03/14/22 04:44 Chloride 104.8 mmol/L (98-107) 03/14/22 04:44 Carbon Dioxide 29 mmol/L (22-30) 03/14/22 04:44 Anion Gap 14 mmol/L 03/14/22 04:44 BUN 24 mg/dL (7-17) H 03/14/22 04:44 Creatinine 0.7 mg/dL (0.6-1.2) 03/14/22 04:44 Estimated GFR > 60 ml/min 03/14/22 04:44 BUN/Creatinine Ratio 34 % 03/14/22 04:44 Glucose 94 mg/dL (65-100) 03/14/22 04:44 POC Glucose 86 mg/dL (70-105) 03/14/22 07:50 Calcium 9.8 mg/dL (8.4-10.2) 03/14/22 04:44 Total Bilirubin 0.30 mg/dL (0.1-1.2) 03/12/22 05:31 AST 27 units/L (5-40) 03/12/22 05:31 ALT 26 units/L (7-56) 03/12/22 05:31 Alkaline Phosphatase 68 units/L (35-129) 03/12/22 05:31 Troponin T 0.015 ng/mL (0.00-0.029) 03/12/22 05:31 C-Reactive Protein 9.70 mg/dL (0.00-1.30) H 03/13/22 07:45 NT-Pro-B Natriuret Pep 1824 pg/mL (0-900) H 03/12/22 05:31 Total Protein 6.6 g/dL (6.3-8.2) 03/12/22 05:31 Albumin 3.8 g/dL (3.9-5) L 03/12/22 05:31 Albumin/Globulin Ratio 1.4 % 03/12/22 05:31 Procalcitonin 0.10 ng/mL (<0.15) 03/13/22 07:45 Coronavirus (PCR) Negative (Negative) 03/12/22 14:20 Microbiology: Microbiology 03/12/22 05:31 Peripheral/Venous Blood Culture - Preliminary 03/12/22 05:57 Peripheral/Venous Blood Culture - Preliminary NO GROWTH AFTER 24 HOURS [place]/IV: Voiding Method External Female Catheter Active Medications - Current Medications Current Medications: Generic Name Dose Route Start Last Admin Trade Name Freq PRN Reason Stop Dose Admin Acetaminophen 650 mg 03/12/22 08:14 Acetaminophen 325 Mg Tab PO Q4H PRN Pain MILD(1-3)/Fever >100.5/GALLOWAY Azithromycin 500 mg 03/13/22 10:00 03/13/22 09:13 Azithromycin 250 Mg Tab PO 03/16/22 10:59 500 mg QDAY RAMA Administration Enoxaparin Sodium 30 mg 03/12/22 10:00 03/13/22 09:13 Enoxaparin 30 Mg/0.3 Ml Inj SUB-Q 30 mg QDAY RAMA Administration Protocol Gabapentin 100 mg 03/12/22 14:00 03/13/22 23:08 Gabapentin 100 Mg Cap PO 100 mg Q8HR RAMA Administration Hydralazine HCl 20 mg 03/14/22 08:30 Hydralazine 20 Mg/1 Ml Inj IV 03/14/22 08:31 ONCE ONE Ceftriaxone Sodium 2 gm in 100 mls @ 200 mls/hr 03/13/22 09:00 03/13/22 09:13 Rocephin/Ns 2 Gm/100 Ml IV 03/16/22 10:59 200 mls/hr Q24H RAMA Administration Protocol Lorazepam 1 mg 03/12/22 22:00 03/13/22 23:05 Lorazepam 1 Mg Tab PO 1 mg QHS RAMA Administration Morphine Sulfate 4 mg 03/12/22 08:14 Morphine 4 Mg/1 Ml Inj IV Q4H PRN Pain , Severe (7-10) Ondansetron HCl 4 mg 03/12/22 08:14 Ondansetron 4 Mg/2 Ml Inj IV Q8H PRN Nausea And Vomiting Oxycodone/Acetaminophen 1 tab 03/12/22 08:14 Oxycodone /Acetaminophen 5-325mg Tab PO Q6H PRN Pain, Moderate (4-6) Pantoprazole Sodium 40 mg 03/13/22 07:30 03/13/22 09:13 Pantoprazole 40 Mg Tab PO 40 mg QDAC RAMA Administration Sertraline HCl 25 mg 03/12/22 12:00 03/13/22 09:13 Sertraline 25 Mg Tab PO 25 mg QDAY RAMA Administration Sodium Chloride 10 ml 03/12/22 10:00 03/13/22 23:07 Sodium Chloride 0.9% 10 Ml Flush Syringe IV 10 ml BID RAMA Administration Sodium Chloride 10 ml 03/12/22 08:14 Sodium Chloride 0.9% 10 Ml Flush Syringe IV PRN PRN LINE FLUSH Temazepam 15 mg 03/12/22 22:00 03/13/22 23:04 Temazepam 15 Mg Cap PO 15 mg QHS RAMA Administration Valproic Acid 250 mg 03/12/22 22:00 03/13/22 23:04 Valproic Acid 250 Mg Cap PO 250 mg BID RAMA Administration Nutrition/Malnutrition Assess - Dietary Evaluation Nutrition/Malnutrition Findings: Nutrition Notes Start: 03/13/22 11:47 Freq: Status: Active Protocol: Document 03/13/22 11:47 ZAYRA (Rec: 03/13/22 11:52 NHALL [id number]) Nutrition Notes Need for Assessment generated from: pelt dropper,MST Initial or Follow up Brief Note Other Pertinent Diagnosis CHF exacerbation, acute resp failure, dementia, r/o COVID- 19 Current Diet Regular + ONS (per MD order) Labs/Tests Na 147 BUN 20 K 3.5 CRP 9.7 Pertinent Medications Reviewed Height 5 ft 3 in Weight 48.8 kg [place] Body Weight (kg) 52.27 BMI 19.1 Weight Status Underweight Subjective/Other Information Pt screened for malnutrition risk. Pt from a personal senior care. She consumed 50% of breakfast this am. Pt is alert and oriented x 2. Burn Absent Trauma Absent Skin Integrity/Comment César score: 13 Minimum of two criteria No Reduced [employer] Strength Measurably Reduced (severe) Is patient on ventilator? No Is Patient Ambulatory and/or Out of Bed No REE-([facility]-confined to bed) 1125.552 Kcal/Kg value to use for calculation 30 Approximate Energy Requirements Using 1464 kcal/Kg Calculation Used for Recommendations Kcal/kg Additional Notes Pro needs 1.2-1.5g/k-73g/ day Fluid needs 1ml/kcal Nutrition Intervention Add Supplement/Snack (indicate name/kcal Ensure Enlive BID /protein ) Provides kCal: 700 Provides Protein (gm) 40 Follow-Up By: 03/16/22 Additional Comments F/U: intakes (meals/ONS)
[2022-03-14] MEDS ORDERED: hydrALAZINE 20 MG/1 ML INJ IV ONE (08:30)
[2022-03-14] MEDS: AZITHROMYCIN 250 MG TAB PO SCH (10:26)
[2022-03-14] MEDS: SERTRALINE 25 MG TAB PO SCH (10:27)
[2022-03-14] MEDS: cefTRIAXone/NS 2 GM/100 ML 2 GM/100 ML BAG IV SCH (10:27)
[2022-03-14] MEDS: GABAPENTIN 100 MG CAP PO SCH ×4 (10:27→21:30)
[2022-03-14] MEDS: VALPROIC ACID 250 MG CAP PO SCH ×2 (10:27→21:29)
[2022-03-14] MEDS: ENOXAPARIN 30 MG/0.3 ML INJ SUB-Q SCH (10:27)
[2022-03-14] MEDS: PANTOPRAZOLE 40 MG TAB PO SCH (10:29)
[2022-03-14] MEDS: LORazepam 1 MG TAB PO SCH (21:30)
[2022-03-14] MEDS: TEMAZEPAM 15 MG CAP PO SCH (21:30)
--- NOTE | 2022-03-15 05:28 | Progress Note ---
Assessment and Plan Assessment and plan: 77-year-old female patient with significant past medical history of dementia was admitted through emergency room from personal custodial with shortness of breath. She was found to be hypoxic to 88% and placed on supplemental oxygen. At time of interview, patient was alert and oriented to self. She is unable to provide further history due to mental status. Labs are notable for NT proBNP 1824. Chest x-ray suggestive of vascular congestion with superimposed pneumonia. Patient received 1 dose of azithromycin and Rocephin in ED. She was admitted for presumed CHF exacerbation with superimposed pneumonia. --Acute hypoxic respiratory failure; Oxygen titrate O2 sats to more than 90% COVID-19 test is negative, home O2 evaluation prior to discharge --Mild diastolic CHF exacerbation; Antifailure medications Left ventricle ejection fraction 65% and mild concentric LVH on echocardiogram --Bilateral pneumonia; Continue empiric antibiotics, follow cultures Home O2 evaluation prior to discharge --History of seizure disorder; Seizure precautions, continue antiepileptic medications Do not drive until cleared by neurology or primary care physician --Dementia; Supportive care --Moderate protein calorie malnutrition; Nutrition supplements and supportive care 03/13/2022. Continue supplemental oxygen to maintain sats greater than 92%. Follow-up echocardiogram to assess heart failure etiology of systolic versus diastolic dysfunction. Continue IV antibiotics and follow-up procalcitonin levels. Check COVID PCR. Continue Depakote for seizure disorder. Seizure pre cautions. 03/14; COVID-19 is negative, DC isolation, continue to treat bilateral pneumonia with Rocephin and Zithromax Monitor the patient and adjust management as needed 03/15/2022; patient is receiving IV Rocephin and Zithromax for bilateral pneumonia COVID-19 is negative, last dose tomorrow Possible discharge if stable, patient will return to personal custodial Possible discharge in 1 to 2 days if stable History Interval history: I have seen and examined the patient at the bedside Patient's chart and medications reviewed Patient feels slightly better Patient is on IV antibiotics for bilateral pneumonia COVID-19 negative No new events reported by the nursing Vital signs noted Hospitalist Physical - Constitutional Vitals: Temp Pulse Resp BP Pulse Ox 98.7 F 61 20 111/65 99 03/14/22 20:56 03/14/22 22:00 03/14/22 22:00 03/14/22 20:56 03/14/22 22:00 General appearance: Present: no acute distress, cachectic - EENT Eyes: Present: PERRL, EOM intact - Neck Neck: Present: supple, normal ROM - Respiratory Respiratory effort: normal Respiratory: bilateral: diminished, negative: rales, rhonchi, wheezing - Cardiovascular Rhythm: regular Heart Sounds: Present: S1 & S2 - Extremities Extremities: no ischemia, No edema - Abdominal General gastrointestinal: soft, non-tender, non-distended, normal bowel sounds - Integumentary Integumentary: Present: clear, warm - Psychiatric Psychiatric: appropriate mood/affect, cooperative - Neurologic Neurologic: moves all extremities HEART Score - HEART Score Troponin: Troponin T 0.015 ng/mL (0.00-0.029) 03/12/22 05:31 Results - Labs CBC & Chem 7: 03/14/22 04:44 03/14/22 04:44 Labs: Laboratory Last Values WBC 6.6 K/mm3 (4.5-11.0) 03/14/22 04:44 RBC 3.48 M/mm3 (3.65-5.03) L 03/14/22 04:44 Hgb 11.5 gm/dl (10.1-14.3) 03/14/22 04:44 Hct 34.7 % (30.3-42.9) 03/14/22 04:44 MCV 100 fl (79-97) H 03/14/22 04:44 MCH 33 pg (28-32) H 03/14/22 04:44 MCHC 33 % (30-34) 03/14/22 04:44 RDW 14.1 % (13.2-15.2) 03/14/22 04:44 Plt Count 279 K/mm3 (140-440) 03/14/22 04:44 Lymph % (Auto) 16.1 % (13.4-35.0) 03/13/22 05:09 [place] % (Auto) 6.3 % (0.0-7.3) 03/13/22 05:09 Eos % (Auto) 3.2 % (0.0-4.3) 03/13/22 05:09 Baso % (Auto) 0.4 % (0.0-1.8) 03/13/22 05:09 Lymph # (Auto) 1.2 K/mm3 (1.2-5.4) 03/13/22 05:09 [place] # (Auto) 0.5 K/mm3 (0.0-0.8) 03/13/22 05:09 Eos # (Auto) 0.2 K/mm3 (0.0-0.4) 03/13/22 05:09 Baso # (Auto) 0.0 K/mm3 (0.0-0.1) 03/13/22 05:09 Add Manual Diff Complete 03/14/22 04:44 Total Counted 100 03/14/22 04:44 Seg Neutrophils % 74.0 % (40.0-70.0) H 03/13/22 05:09 Seg Neuts % (Manual) 80.0 % (40.0-70.0) H 03/14/22 04:44 Band Neutrophils % 0 % 03/14/22 04:44 Lymphocytes % (Manual) 13.0 % (13.4-35.0) L 03/14/22 04:44 Reactive Lymphs % (Man) 0 % 03/14/22 04:44 Monocytes % (Manual) 0 % (0.0-7.3) 03/14/22 04:44 Eosinophils % (Manual) 7.0 % (0.0-4.3) H 03/14/22 04:44 Basophils % (Manual) 0 % (0.0-1.8) 03/14/22 04:44 Metamyelocytes % 0 % 03/14/22 04:44 Myelocytes % 0 % 03/14/22 04:44 Promyelocytes % 0 % 03/14/22 04:44 Blast Cells % 0 % 03/14/22 04:44 Nucleated RBC % Not Reportable 03/14/22 04:44 Seg Neutrophils # 5.6 K/mm3 (1.8-7.7) 03/13/22 05:09 Seg Neutrophils # Man 5.3 K/mm3 (1.8-7.7) 03/14/22 04:44 Band Neutrophils # 0.0 K/mm3 03/14/22 04:44 Lymphocytes # (Manual) 0.9 K/mm3 (1.2-5.4) L 03/14/22 04:44 Abs React Lymphs (Man) 0.0 K/mm3 03/14/22 04:44 Monocytes # (Manual) 0.0 K/mm3 (0.0-0.8) 03/14/22 04:44 Eosinophils # (Manual) 0.5 K/mm3 (0.0-0.4) H 03/14/22 04:44 Basophils # (Manual) 0.0 K/mm3 (0.0-0.1) 03/14/22 04:44 Metamyelocytes # 0.0 K/mm3 03/14/22 04:44 Myelocytes # 0.0 K/mm3 03/14/22 04:44 Promyelocytes # 0.0 K/mm3 03/14/22 04:44 Blast Cells # 0.0 K/mm3 03/14/22 04:44 WBC Morphology Not Reportable 03/14/22 04:44 Hypersegmented Neuts Not Reportable 03/14/22 04:44 Hyposegmented Neuts Not Reportable 03/14/22 04:44 Hypogranular Neuts Not Reportable 03/14/22 04:44 Smudge Cells Not Reportable 03/14/22 04:44 Toxic Granulation Not Reportable 03/14/22 04:44 Toxic Vacuolation Not Reportable 03/14/22 04:44 Dohle Bodies Not Reportable 03/14/22 04:44 Pelger-Huet Anomaly Not Reportable 03/14/22 04:44 [place]bin Rods Not Reportable 03/14/22 04:44 Platelet Estimate Consistent w auto 03/14/22 04:44 Clumped Platelets Not Reportable 03/14/22 04:44 Plt Clumps, EDTA Not Reportable 03/14/22 04:44 Large Platelets Not Reportable 03/14/22 04:44 Giant Platelets Not Reportable 03/14/22 04:44 Platelet Satelliting Not Reportable 03/14/22 04:44 Plt Morphology Comment Not Reportable 03/14/22 04:44 RBC Morphology Normal 03/14/22 04:44 Dimorphic RBCs Not Reportable 03/14/22 04:44 Polychromasia Not Reportable 03/14/22 04:44 Hypochromasia Not Reportable 03/14/22 04:44 Poikilocytosis Not Reportable 03/14/22 04:44 Anisocytosis Not Reportable 03/14/22 04:44 Microcytosis Not Reportable 03/14/22 04:44 Macrocytosis Not Reportable 03/14/22 04:44 Spherocytes Not Reportable 03/14/22 04:44 Pappenheimer Bodies Not Reportable 03/14/22 04:44 Sickle Cells Not Reportable 03/14/22 04:44 Target Cells Not Reportable 03/14/22 04:44 Tear Drop Cells Not Reportable 03/14/22 04:44 Ovalocytes Not Reportable 03/14/22 04:44 Helmet Cells Not Reportable 03/14/22 04:44 [place] [place] Bodies Not Reportable 03/14/22 04:44 [place] Rings Not Reportable 03/14/22 04:44 [place] Cells Not Reportable 03/14/22 04:44 Bite Cells Not Reportable 03/14/22 04:44 Crenated Cell Not Reportable 03/14/22 04:44 Elliptocytes Not Reportable 03/14/22 04:44 Acanthocytes (Spur) Not Reportable 03/14/22 04:44 Rouleaux Not Reportable 03/14/22 04:44 Hemoglobin C Crystals Not Reportable 03/14/22 04:44 Schistocytes Not Reportable 03/14/22 04:44 Malaria parasites Not Reportable 03/14/22 04:44 Demetrius Bodies Not Reportable 03/14/22 04:44 Hem Pathologist Commnt No 03/14/22 04:44 PT 14.5 Sec. (12.2-14.9) 03/12/22 05:31 INR 1.02 (0.87-1.13) 03/12/22 05:31 Sodium 144 mmol/L (137-145) 03/14/22 04:44 Potassium 4.2 mmol/L (3.6-5.0) 03/14/22 04:44 Chloride 104.8 mmol/L (98-107) 03/14/22 04:44 Carbon Dioxide 29 mmol/L (22-30) 03/14/22 04:44 Anion Gap 14 mmol/L 03/14/22 04:44 BUN 24 mg/dL (7-17) H 03/14/22 04:44 Creatinine 0.7 mg/dL (0.6-1.2) 03/14/22 04:44 Estimated GFR > 60 ml/min 03/14/22 04:44 BUN/Creatinine Ratio 34 % 03/14/22 04:44 Glucose 94 mg/dL (65-100) 03/14/22 04:44 POC Glucose 122 mg/dL (70-105) H 03/14/22 20:57 Calcium 9.8 mg/dL (8.4-10.2) 03/14/22 04:44 Total Bilirubin 0.30 mg/dL (0.1-1.2) 03/12/22 05:31 AST 27 units/L (5-40) 03/12/22 05:31 ALT 26 units/L (7-56) 03/12/22 05:31 Alkaline Phosphatase 68 units/L (35-129) 03/12/22 05:31 Troponin T 0.015 ng/mL (0.00-0.029) 03/12/22 05:31 C-Reactive Protein 9.70 mg/dL (0.00-1.30) H 03/13/22 07:45 NT-Pro-B Natriuret Pep 1824 pg/mL (0-900) H 03/12/22 05:31 Total Protein 6.6 g/dL (6.3-8.2) 03/12/22 05:31 Albumin 3.8 g/dL (3.9-5) L 03/12/22 05:31 Albumin/Globulin Ratio 1.4 % 03/12/22 05:31 Procalcitonin 0.10 ng/mL (<0.15) 03/13/22 07:45 Coronavirus (PCR) Negative (Negative) 03/12/22 14:20 Microbiology: Microbiology 03/12/22 05:57 Peripheral/Venous Blood Culture - Preliminary NO GROWTH AFTER 48 HOURS 03/12/22 05:31 Peripheral/Venous Blood Culture - Preliminary Coag Negative Staphylococcus [place]/IV: Voiding Method External Female Catheter Active Medications - Current Medications Current Medications: Generic Name Dose Route Start Last Admin Trade Name Freq PRN Reason Stop Dose Admin Acetaminophen 650 mg 03/12/22 08:14 03/14/22 13:49 Acetaminophen 325 Mg Tab PO 650 mg Q4H PRN Administration Pain MILD(1-3)/Fever >100.5/GALLOWAY Azithromycin 500 mg 03/13/22 10:00 03/14/22 10:26 Azithromycin 250 Mg Tab PO 03/16/22 10:59 500 mg QDAY RAMA Administration Enoxaparin Sodium 30 mg 03/12/22 10:00 03/14/22 10:27 Enoxaparin 30 Mg/0.3 Ml Inj SUB-Q 30 mg QDAY RAMA Administration Protocol Gabapentin 100 mg 03/12/22 14:00 03/14/22 21:30 Gabapentin 100 Mg Cap PO 100 mg Q8HR RAMA Administration Ceftriaxone Sodium 2 gm in 100 mls @ 200 mls/hr 03/13/22 09:00 03/14/22 10:27 Rocephin/Ns 2 Gm/100 Ml IV 03/16/22 10:59 200 mls/hr Q24H RAMA Administration Protocol Lorazepam 1 mg 03/12/22 22:00 03/14/22 21:30 Lorazepam 1 Mg Tab PO 1 mg QHS RAMA Administration Morphine Sulfate 4 mg 03/12/22 08:14 Morphine 4 Mg/1 Ml Inj IV Q4H PRN Pain , Severe (7-10) Ondansetron HCl 4 mg 03/12/22 08:14 Ondansetron 4 Mg/2 Ml Inj IV Q8H PRN Nausea And Vomiting Oxycodone/Acetaminophen 1 tab 03/12/22 08:14 Oxycodone /Acetaminophen 5-325mg Tab PO Q6H PRN Pain, Moderate (4-6) Pantoprazole Sodium 40 mg 03/13/22 07:30 03/14/22 10:29 Pantoprazole 40 Mg Tab PO 40 mg QDAC RAMA Administration Sertraline HCl 25 mg 03/12/22 12:00 03/14/22 10:27 Sertraline 25 Mg Tab PO 25 mg QDAY RAMA Administration Sodium Chloride 10 ml 03/12/22 10:00 03/14/22 21:30 Sodium Chloride 0.9% 10 Ml Flush Syringe IV 10 ml BID RAMA Administration Sodium Chloride 10 ml 03/12/22 08:14 Sodium Chloride 0.9% 10 Ml Flush Syringe IV PRN PRN LINE FLUSH Temazepam 15 mg 03/12/22 22:00 03/14/22 21:30 Temazepam 15 Mg Cap PO 15 mg QHS RAMA Administration Valproic Acid 250 mg 03/12/22 22:00 03/14/22 21:29 Valproic Acid 250 Mg Cap PO 250 mg BID RAMA Administration Nutrition/Malnutrition Assess - Dietary Evaluation Nutrition/Malnutrition Findings: Nutrition Notes Start: 03/13/22 1 1:47 Freq: Status: Active Protocol: Document 03/13/22 11:47 ZAYRA (Rec: 03/13/22 11:52 ZAYRA [id number]) Nutrition Notes Need for Assessment generated from: senior sql developer,MST Initial or Follow up Brief Note Other Pertinent Diagnosis CHF exacerbation, acute resp failure, dementia, r/o COVID- 19 Current Diet Regular + ONS (per MD order) Labs/Tests Na 147 BUN 20 K 3.5 CRP 9.7 Pertinent Medications Reviewed Height 5 ft 3 in Weight 48.8 kg [place] Body Weight (kg) 52.27 BMI 19.1 Weight Status Underweight Subjective/Other Information Pt screened for malnutrition risk. Pt from a personal custodial. She consumed 50% of breakfast this am. Pt is alert and oriented x 2. Burn Absent Trauma Absent Skin Integrity/Comment César score: 13 Minimum of two criteria No Reduced Wood Heel Flap Rubber Strength Measurably Reduced (severe) Is patient on ventilator? No Is Patient Ambulatory and/or Out of Bed No REE-([facility]-confined to bed) 1125.552 Kcal/Kg value to use for calculation 30 Approximate Energy Requirements Using 1464 kcal/Kg Calculation Used for Recommendations Kcal/kg Additional Notes Pro needs 1.2-1.5g/k-73g/ day Fluid needs 1ml/kcal Nutrition Intervention Add Supplement/Snack (indicate name/kcal Ensure Enlive BID /protein ) Provides kCal: 700 Provides Protein (gm) 40 Follow-Up By: 03/16/22 Additional Comments F/U: intakes (meals/ONS)
[2022-03-15] MEDS: GABAPENTIN 100 MG CAP PO SCH ×3 (08:50→22:12)
[2022-03-15] MEDS: AZITHROMYCIN 250 MG TAB PO SCH (09:14)
[2022-03-15] MEDS: PANTOPRAZOLE 40 MG TAB PO SCH (09:14)
[2022-03-15] MEDS: SERTRALINE 25 MG TAB PO SCH ×2 (09:14→09:20)
[2022-03-15] MEDS: VALPROIC ACID 250 MG CAP PO SCH ×2 (09:14→22:38)
[2022-03-15] MEDS: cefTRIAXone/NS 2 GM/100 ML 2 GM/100 ML BAG IV SCH (09:14)
[2022-03-15] MEDS: ENOXAPARIN 30 MG/0.3 ML INJ SUB-Q SCH (09:15)
[2022-03-15] MEDS: LORazepam 1 MG TAB PO SCH (22:12)
[2022-03-15] MEDS: TEMAZEPAM 15 MG CAP PO SCH (22:39)
[2022-03-16] MEDS: GABAPENTIN 100 MG CAP PO SCH ×3 (05:12→22:56)
--- NOTE | 2022-03-16 09:47 | Discharge Summary ---
Providers - Providers Date of Admission: 03/12/22 08:14 Date of discharge: 03/16/22 Attending physician: OLGA LIDIA CASAREZ 03/13/22 15:59 Speech Therapy Evaluation and Treat [CONS] Routine Reason For Exam: swallow evaluation 03/15/22 05:32 Physical Therapy Evaluation and Treat [CONS] Routine Comment: Reason For Exam: gen debility/DC needs Primary care physician: YESSICA ANN Hospitalization Condition: Fair Hospital course: 77-year-old female patient with significant past medical history of dementia was admitted through emergency room from personal skilled nursing with shortness of breath. She was found to be hypoxic to 88% and placed on supplemental oxygen. At time of interview, patient was alert and oriented to self. She is unable to provide further history due to mental status. Labs are notable for NT proBNP 1824. Chest x-ray suggestive of vascular congestion with superimposed pneumonia. Patient received 1 dose of azithromycin and Rocephin in ED. She was admitted for presumed CHF exacerbation with superimposed pneumonia. --Acute hypoxic respiratory failure; Oxygen titrate O2 sats to more than 90% COVID-19 test is negative, home O2 evaluation prior to discharge --Mild diastolic CHF exacerbation; Antifailure medications Pulmonary congestion on chest x-ray Elevated BNP 1824 Left ventricle ejection fraction 65% and mild concentric LVH on echocardiogram --Bilateral pneumonia; Continue empiric antibiotics, follow cultures Home O2 evaluation prior to discharge --History of seizure disorder; Seizure precautions, continue antiepileptic medications Do not drive until cleared by neurology or primary care physician --Dementia; Supportive care --Moderate protein calorie malnutrition; Nutrition supplements and supportive care 03/13/2022. Continue supplemental oxygen to maintain sats greater than 92%. Follow-up echocardiogram to assess heart failure etiology of systolic versus diastolic dysfunction. Continue IV antibiotics and follow-up procalcitonin leve ls. Check COVID PCR. Continue Depakote for seizure disorder. Seizure precautions. 03/14; COVID-19 is negative, DC isolation, continue to treat bilateral pneumonia with Rocephin and Zithromax Monitor the patient and adjust management as needed 03/15/2022; patient is receiving IV Rocephin and Zithromax for bilateral pneumonia COVID-19 is negative, last dose tomorrow Possible discharge if stable, patient will return to personal skilled nursing Possible discharge in 1 to 2 days if stable Disposition: 01 HOME / SELF CARE / HOMELESS Final Discharge Diagnosis (Prints w/discharge instructions): Acute hypoxic respiratory failure /resolved. Mild diastolic CHF. Bilateral pneumonia completed treatment. History of seizure disorder. Dementia. Moderate protein calorie malnutrition Time spent for discharge: 35 min Core Measure Documentation - Palliative Care Palliative Care/ Comfort Measures: Not Applicable - Core Measures Any of the following diagnoses?: none Exam - Constitutional Vitals: Temp Pulse Resp BP Pulse Ox 97.8 F 57 L 16 130/93 97 03/16/22 04:00 03/16/22 04:00 03/16/22 04:00 03/16/22 04:00 03/16/22 08:54 General appearance: Present: no acute distress, well-nourished - EENT Eyes: Present: PERRL, EOM intact - Neck Neck: Present: supple, normal ROM - Respiratory Respiratory effort: normal Respiratory: bilateral: diminished, negative: rales, rhonchi, wheezing - Cardiovascular Rhythm: regular Heart Sounds: Present: S1 & S2 - Extremities Extremities: no ischemia, No edema - Abdominal General gastrointestinal: Present: soft, non-tender, non-distended, normal bowel sounds - Integumentary Integumentary: Present: clear, warm - Musculoskeletal Musculoskeletal: strength equal bilaterally, generalized weakness - Psychiatric Psychiatric: appropriate mood/affect, cooperative - Neurologic Neurologic: moves all extremities Plan Activity: advance as tolerated, fall precautions Diet: regular Additional Instructions: If you have worsening symptoms contact MD or go to the nearest emergency room as needed. Fall precautions. Advised to see primary care physician in 1 week Follow up with: YESSICA ANN MD [Primary Care Provider] - 3-5 Days Prescriptions: Valproic Acid [Depakene] 250 mg PO BID #60 capsule Gabapentin 100 mg PO Q8HR #90 cap oxyCODONE /ACETAMINOPHEN [Percocet 5/325 mg] 1 tab PO Q6H PRN #14 tablet PRN Reason: Pain, Moderate (4-6) Pantoprazole [Protonix TAB] 40 mg PO QDAC #20 tablet Temazepam [Restoril] 15 mg PO QHS #10 capsule Sertraline [Zoloft] 25 mg PO QDAY #30 tablet
[2022-03-16] MEDS: AZITHROMYCIN 250 MG TAB PO SCH (10:24)
[2022-03-16] MEDS: PANTOPRAZOLE 40 MG TAB PO SCH (10:24)
[2022-03-16] MEDS: VALPROIC ACID 250 MG CAP PO SCH ×2 (10:24→23:00)
[2022-03-16] MEDS: SERTRALINE 25 MG TAB PO SCH (10:24)
[2022-03-16] MEDS: ENOXAPARIN 30 MG/0.3 ML INJ SUB-Q SCH (10:25)
[2022-03-16] MEDS: cefTRIAXone/NS 2 GM/100 ML 2 GM/100 ML BAG IV SCH (10:30)
--- NOTE | 2022-03-16 15:00 | Progress Note ---
Hospitalist Physical - Constitutional Vitals: Temp Pulse Resp BP Pulse Ox 98.6 F 45 L 16 132/67 100 03/16/22 11:16 03/16/22 11:16 03/16/22 11:16 03/16/22 11:16 03/16/22 11:16 General appearance: Present: no acute distress, cachectic HEART Score - HEART Score Troponin: Troponin T 0.015 ng/mL (0.00-0.029) 03/12/22 05:31 Results - Labs CBC & Chem 7: 03/14/22 04:44 03/14/22 04:44 Labs: Laboratory Last Values WBC 6.6 K/mm3 (4.5-11.0) 03/14/22 04:44 RBC 3.48 M/mm3 (3.65-5.03) L 03/14/22 04:44 Hgb 11.5 gm/dl (10.1-14.3) 03/14/22 04:44 Hct 34.7 % (30.3-42.9) 03/14/22 04:44 MCV 100 fl (79-97) H 03/14/22 04:44 MCH 33 pg (28-32) H 03/14/22 04:44 MCHC 33 % (30-34) 03/14/22 04:44 RDW 14.1 % (13.2-15.2) 03/14/22 04:44 Plt Count 279 K/mm3 (140-440) 03/14/22 04:44 Lymph % (Auto) 16.1 % (13.4-35.0) 03/13/22 05:09 [place] % (Auto) 6.3 % (0.0-7.3) 03/13/22 05:09 Eos % (Auto) 3.2 % (0.0-4.3) 03/13/22 05:09 Baso % (Auto) 0.4 % (0.0-1.8) 03/13/22 05:09 Lymph # (Auto) 1.2 K/mm3 (1.2-5.4) 03/13/22 05:09 [place] # (Auto) 0.5 K/mm3 (0.0-0.8) 03/13/22 05:09 Eos # (Auto) 0.2 K/mm3 (0.0-0.4) 03/13/22 05:09 Baso # (Auto) 0.0 K/mm3 (0.0-0.1) 03/13/22 05:09 Add Manual Diff Complete 03/14/22 04:44 Total Counted 100 03/14/22 04:44 Seg Neutrophils % 74.0 % (40.0-70.0) H 03/13/22 05:09 Seg Neuts % (Manual) 80.0 % (40.0-70.0) H 03/14/22 04:44 Band Neutrophils % 0 % 03/14/22 04:44 Lymphocytes % (Manual) 13.0 % (13.4-35.0) L 03/14/22 04:44 Reactive Lymphs % (Man) 0 % 03/14/22 04:44 Monocytes % (Manual) 0 % (0.0-7.3) 03/14/22 04:44 Eosinophils % (Manual) 7.0 % (0.0-4.3) H 03/14/22 04:44 Basophils % (Manual) 0 % (0.0-1.8) 03/14/22 04:44 Metamyelocytes % 0 % 03/14/22 04:44 Myelocytes % 0 % 03/14/22 04:44 Promyelocytes % 0 % 03/14/22 04:44 Blast Cells % 0 % 03/14/22 04:44 Nucleated RBC % Not Reportable 03/14/22 04:44 Seg Neutrophils # 5.6 K/mm3 (1.8-7.7) 03/13/22 05:09 Seg Neutrophils # Man 5.3 K/mm3 (1.8-7.7) 03/14/22 04:44 Band Neutrophils # 0.0 K/mm3 03/14/22 04:44 Lymphocytes # (Manual) 0.9 K/mm3 (1.2-5.4) L 03/14/22 04:44 Abs React Lymphs (Man) 0.0 K/mm3 03/14/22 04:44 Monocytes # (Manual) 0.0 K/mm3 (0.0-0.8) 03/14/22 04:44 Eosinophils # (Manual) 0.5 K/mm3 (0.0-0.4) H 03/14/22 04:44 Basophils # (Manual) 0.0 K/mm3 (0.0-0.1) 03/14/22 04:44 Metamyelocytes # 0.0 K/mm3 03/14/22 04:44 Myelocytes # 0.0 K/mm3 03/14/22 04:44 Promyelocytes # 0.0 K/mm3 03/14/22 04:44 Blast Cells # 0.0 K/mm3 03/14/22 04:44 WBC Morphology Not Reportable 03/14/22 04:44 Hypersegmented Neuts Not Reportable 03/14/22 04:44 Hyposegmented Neuts Not Reportable 03/14/22 04:44 Hypogranular Neuts Not Reportable 03/14/22 04:44 Smudge Cells Not Reportable 03/14/22 04:44 Toxic Granulation Not Reportable 03/14/22 04:44 Toxic Vacuolation Not Reportable 03/14/22 04:44 Dohle Bodies Not Reportable 03/14/22 04:44 Pelger-Huet Anomaly Not Reportable 03/14/22 04:44 [place]bin Rods Not Reportable 03/14/22 04:44 Platelet Estimate Consistent w auto 03/14/22 04:44 Clumped Platelets Not Reportable 03/14/22 04:44 Plt Clumps, EDTA Not Reportable 03/14/22 04:44 Large Platelets Not Reportable 03/14/22 04:44 Giant Platelets Not Reportable 03/14/22 04:44 Platelet Satelliting Not Reportable 03/14/22 04:44 Plt Morphology Comment Not Reportable 03/14/22 04:44 RBC Morphology Normal 03/14/22 04:44 Dimorphic RBCs Not Reportable 03/14/22 04:44 Polychromasia Not Reportable 03/14/22 04:44 Hypochromasia Not Reportable 03/14/22 04:44 Poikilocytosis Not Reportable 03/14/22 04:44 Anisocytosis Not Reportable 03/14/22 04:44 Microcytosis Not Reportable 03/14/22 04:44 Macrocytosis Not Reportable 03/14/22 04:44 Spherocytes Not Reportable 03/14/22 04:44 Pappenheimer Bodies Not Reportable 03/14/22 04:44 Sickle Cells Not Reportable 03/14/22 04:44 Target Cells Not Reportable 03/14/22 04:44 Tear Drop Cells Not Reportable 03/14/22 04:44 Ovalocytes Not Reportable 03/14/22 04:44 Helmet Cells Not Reportable 03/14/22 04:44 [place] Bodies Not Reportable 03/14/22 04:44 [place] Rings Not Reportable 03/14/22 04:44 [place] Cells Not Reportable 03/14/22 04:44 Bite Cells Not Reportable 03/14/22 04:44 Crenated Cell Not Reportable 03/14/22 04:44 Elliptocytes Not Reportable 03/14/22 04:44 Acanthocytes (Spur) Not Reportable 03/14/22 04:44 Rouleaux Not Reportable 03/14/22 04:44 Hemoglobin C Crystals Not Reportable 03/14/22 04:44 Schistocytes Not Reportable 03/14/22 04:44 Malaria parasites Not Reportable 03/14/22 04:44 Demetrius Bodies Not Reportable 03/14/22 04:44 Hem Pathologist Commnt No 03/14/22 04:44 PT 14.5 Sec. (12.2-14.9) 03/12/22 05:31 INR 1.02 (0.87-1.13) 03/12/22 05:31 Sodium 144 mmol/L (137-145) 03/14/22 04:44 Potassium 4.2 mmol/L (3.6-5.0) 03/14/22 04:44 Chloride 104.8 mmol/L (98-107) 03/14/22 04:44 Carbon Dioxide 29 mmol/L (22-30) 03/14/22 04:44 Anion Gap 14 mmol/L 03/14/22 04:44 BUN 24 mg/dL (7-17) H 03/14/22 04:44 Creatinine 0.7 mg/dL (0.6-1.2) 03/14/22 04:44 Estimated GFR > 60 ml/min 03/14/22 04:44 BUN/Creatinine Ratio 34 % 03/14/22 04:44 Glucose 94 mg/dL (65-100) 03/14/22 04:44 POC Glucose 89 mg/dL (70-105) 03/16/22 11:13 Calcium 9.8 mg/dL (8.4-10.2) 03/14/22 04:44 Total Bilirubin 0.30 mg/dL (0.1-1.2) 03/12/22 05:31 AST 27 units/L (5-40) 03/12/22 05:31 ALT 26 units/L (7-56) 03/12/22 05:31 Alkaline Phosphatase 68 units/L (35-129) 03/12/22 05:31 Troponin T 0.015 ng/mL (0.00-0.029) 03/12/22 05:31 C-Reactive Protein 9.70 mg/dL (0.00-1.30) H 03/13/22 07:45 NT-Pro-B Natriuret Pep 1824 pg/mL (0-900) H 03/12/22 05:31 Total Protein 6.6 g/dL (6.3-8.2) 03/12/22 05:31 Albumin 3.8 g/dL (3.9-5) L 03/12/22 05:31 Albumin/Globulin Ratio 1.4 % 03/12/22 05:31 Procalcitonin 0.10 ng/mL (<0.15) 03/13/22 07:45 Coronavirus (PCR) Negative (Negative) 03/12/22 14:20 Microbiology: Microbiology 03/12/22 05:57 Peripheral/Venous Blood Culture - Preliminary NO GROWTH AFTER 4 DAYS [place]/IV: Voiding Method External Female Catheter Active Medications - Current Medications Current Medications: Generic Name Dose Route Start Last Admin Trade Name Freq PRN Reason Stop Dose Admin Acetaminophen 650 mg 03/12/22 08:14 03/14/22 13:49 Acetaminophen 325 Mg Tab PO 650 mg Q4H PRN Administration Pain MILD(1-3)/Fever >100.5/[place] Enoxaparin Sodium 30 mg 03/12/22 10:00 03/16/22 10:25 Enoxaparin 30 Mg/0.3 Ml Inj SUB-Q 30 mg QDAY RAMA Administration Protocol Gabapentin 100 mg 03/12/22 14:00 03/16/22 13:44 Gabapentin 100 Mg Cap PO 100 mg Q8HR RAMA Administration Lorazepam 1 mg 03/12/22 22:00 03/15/22 22:12 Lorazepam 1 Mg Tab PO 1 mg QHS RAMA Administration Morphine Sulfate 4 mg 03/12/22 08:14 Morphine 4 Mg/1 Ml Inj IV Q4H PRN Pain , Severe (7-10) Ondansetron HCl 4 mg 03/12/22 08:14 Ondansetron 4 Mg/2 Ml Inj IV Q8H PRN Nausea And Vomiting Oxycodone/Acetaminophen 1 tab 03/12/22 08:14 Oxycodone /Acetaminophen 5-325mg Tab PO Q6H PRN Pain, Moderate (4-6) Pantoprazole Sodium 40 mg 03/13/22 07:30 03/16/22 10:24 Pantoprazole 40 Mg Tab PO 40 mg QDAC RAMA Administration Sertraline HCl 25 mg 03/12/22 12:00 03/16/22 10:24 Sertraline 25 Mg Tab PO 25 mg QDAY RAMA Administration Sodium Chloride 10 ml 03/12/22 10:00 03/16/22 10:25 Sodium Chloride 0.9% 10 Ml Flush Syringe IV 10 ml BID RAMA Administration Sodium Chloride 10 ml 03/12/22 08:14 Sodium Chloride 0.9% 10 Ml Flush Syringe IV PRN PRN LINE FLUSH Temazepam 15 mg 03/12/22 22:00 03/15/22 22:39 Temazepam 15 Mg Cap PO 15 mg QHS RAMA Administration Valproic Acid 250 mg 03/12/22 22:00 03/16/22 10:24 Valproic Acid 250 Mg Cap PO 250 mg BID RAMA Administration Nutrition/Malnutrition Assess - Dietary Evaluation Nutrition/Malnutrition Findings: Nutrition Notes Start: 03/13/22 11:47 Freq: Status: Active Protocol: Document 03/13/22 11:47 ZAYRA (Rec: 03/13/22 11:52 [facility] [id number]) Nutrition Notes 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 Pt from a personal intermediate. She consumed 50% of breakfast this am. Pt is alert and oriented x 2. Burn Absent Trauma Absent Skin Integrity/Comment César score: 13 Minimum of two criteria No Reduced [place]amp [place]ades Supervisor Strength Measurably Reduced (severe) Is patient on ventilator? No Is Patient Ambulatory and/or Out of Bed No REE-([place]-confined to bed) 1125.552 Kcal/Kg value to use for calculation 30 Approximate Energy Requirements Using 1464 kcal/Kg Calculation Used for Recommendations Kcal/kg Additional Notes Pro needs 1.2-1.5g/k-73g/ day Fluid needs 1ml/kcal Nutrition Intervention Add Supplement/Snack (indicate name/kcal Ensure Enlive BID /protein ) Provides kCal: 700 Provides Protein (gm) 40 Follow-Up By: 03/16/22 Additional Comments F/U: intakes (meals/ONS)
[2022-03-16] MEDS: LORazepam 1 MG TAB PO SCH (22:56)
[2022-03-16] MEDS: TEMAZEPAM 15 MG CAP PO SCH (22:56)
[2022-03-16 23:19] VITALS: BP 178/86
== END 2022-03-17 01:30 | disposition hospice, home (50) | DRG 193 ==
LOC: ED 03:08 → 3A 08:14
PROVIDERS: ADMIT Student in an Organized Health Care Education/Training Program; ATTEND Internal Medicine
DX: J18.9 Pneumonia, unspecified organism (principal); J96.01 Acute respiratory failure with hypoxia; I50.33 Acute on chronic diastolic (congestive) heart failure; E44.0 Moderate protein-calorie malnutrition; Z20.822 Contact with and (suspected) exposure to COVID-19; I11.0 Hypertensive heart disease with heart failure; M19.90 Unspecified osteoarthritis, unspecified site; F03.90 Unspecified dementia, unspecified severity, without behavioral disturbance, psychotic disturbance, mood disturbance, and anxiety; Z87.891 Personal history of nicotine dependence; Z68.20 Body mass index [BMI] 20.0-20.9, adult; G40.909 Epilepsy, unspecified, not intractable, without status epilepticus; Z51.5 Encounter for palliative care
CPT/HCPCS: 36415; 71045; 80048; 80053; 82962; 83880; 84145; 84484; 85007; 85025; 85610; 86140; 87040; 93005; 93306; 94760; G0378; J3490; C8929; J0360; J0456; J0696; J1650; J1940; U0003